=== PATIENT | male | born 1985 | race Hispanic/Latino ===

== ENCOUNTER 2017-11-18 13:53 | Emergency (ER) | payer OTHER ==
[2017-11-18] MEDS ORDERED: METOCLOPRAMIDE 10 MG/2 ML VIAL ONE (14:13)
[2017-11-18] MEDS ORDERED: DiphenhydrAMINE HCL 50 MG/ML VIAL ONE (14:14)
[2017-11-18] MEDS ORDERED: KETOROLAC TROMETHAMINE 15MG/ML ONE (14:14)
[2017-11-18 14:30] LABS: BASOPHILS % (AUTO) 0.6 % (0.0-5.0); HEMATOCRIT 43.3 % (42-54); LYMPHOCYTES % (AUTO) 23.5 % (21.0-51.0); MEAN CORPUSCULAR HEMOGLOBIN 29.3 pg (27.0-33.0); MEAN CORPUSCULAR HGB CONC 34.7 g/dL (32.0-36.0); MEAN CORPUSCULAR VOLUME 84.5 fL (79-99); MONOCYTES % (AUTO) 6.5 % (3.0-13.0); NEUTROPHILS % (AUTO) 67.4 % (40.0-77.0); PLATELET COUNT (AUTO) 343 K/uL (130-400); RED BLOOD CELL COUNT(AUTO) 5.12 MIL/uL (4.50-6.20); RED CELL DISTRIBUTION WIDTH 12.8 % (11.0-15.5); WHITE BLOOD COUNT (AUTO) 8.5 K/uL (4.8-10.8)
[2017-11-18 14:40] LABS: POTASSIUM 3.7 mmol/L (3.5-5.1)
[2017-11-18 14:46] LABS: ALBUMIN 3.7 g/dL (3.5-5.0); BILIRUBIN,TOTAL 0.1 mg/dL (0.2-1.0); TOTAL PROTEIN, SERUM 7.3 g/dL (6.0-8.3)
[2017-11-18] MEDS ORDERED: SODIUM CHLORIDE 0.9% 1000ML 1,000 ML IV ONE (15:09)
== END 2017-11-18 15:53 | disposition home or self-care (01) ==
LOC: EDH 13:53
DX: G43.909 Migraine, unspecified, not intractable, without status migrainosus (principal); Z72.0 Tobacco use; Z79.899 Other long term (current) drug therapy
CPT/HCPCS: 36415; 80053; 85025; 96374; 96375; 99284; J1200; J1885; J2765; J7030

== ENCOUNTER 2019-07-11 10:44 | Observation (INO) | payer OTHER ==
[~2019-07-11] VITALS: Ht 180.3 cm; Wt 83.9 kg
[2019-07-11 11:38] LABS: BASOPHILS % (AUTO) 0.8 % (0.0-5.0); EOSINOPHILS % (AUTO) 2.1 % (0.0-8.0); HEMATOCRIT 44.5 % (42-54); MEAN CORPUSCULAR HGB CONC 33.5 g/dL (32.0-36.0); MEAN CORPUSCULAR VOLUME 86.6 fL (79-99); MONOCYTES % (AUTO) 5.8 % (3.0-13.0); PLATELET COUNT (AUTO) 310 K/uL (130-400); RED BLOOD CELL COUNT(AUTO) 5.14 MIL/uL (4.50-6.20); WHITE BLOOD COUNT (AUTO) 6.6 K/uL (4.8-10.8)
[2019-07-11] MEDS ORDERED: KETOROLAC TROMETHAMINE 30MG/ML ONE (12:32)
[2019-07-11] MEDS ORDERED: LORAZEPAM 2 MG/ML 1 ML VIAL ONE (12:35)
[2019-07-11] MEDS ORDERED: CEFAZOLIN SODIUM 1 GM VIAL ONE (12:44)
[2019-07-11] MEDS ORDERED: SODIUM CHLORIDE 0.9% 100 ML IV ONE (12:44)
[2019-07-11] MEDS ORDERED: ACETAMINOPHEN 325 MG TAB PO PRN ×2 (14:45)
[2019-07-11] MEDS ORDERED: HYDRALAZINE HCL 20 MG/ML VIAL IV PRN (14:45)
[2019-07-11] MEDS: ZOSYN 3.375GM+NS 50ML 50 ML IV SCH ×2 (14:45→22:07)
[2019-07-11] MEDS ORDERED: ZOSYN 3.375GM+NS 50ML 50 ML IV ONE (16:27)
[2019-07-11] MEDS ORDERED: ACETAMINOPHEN 325 MG TAB ONE (17:31)
[2019-07-11 18:10] VITALS: BP 117/64
[2019-07-11] MEDS ORDERED: GABA-529 PO (18:46)
[2019-07-11] MEDS ORDERED: SERT100T PO (18:46)
[2019-07-11] MEDS ORDERED: OMEP40CA13 PO (18:46)
[2019-07-11 20:08] VITALS: BP 114/67
[2019-07-11] MEDS: FAMOTIDINE 20MG TAB 20 MG TAB PO SCH (20:22)
[2019-07-11] MEDS: KETOROLAC TROMETHAMINE 15MG/ML IV PRN (20:23)
[2019-07-11] MEDS: LORAZEPAM 2 MG/ML 1 ML VIAL IVP PRN (22:07)
[2019-07-12 00:12] VITALS: BP 106/57
[2019-07-12 04:12] VITALS: BP 96/56
[2019-07-12] MEDS: ZOSYN 3.375GM+NS 50ML 50 ML IV SCH ×3 (05:29→22:22)
[2019-07-12 07:51] VITALS: BP 107/63
[2019-07-12] MEDS: FAMOTIDINE 20MG TAB 20 MG TAB PO SCH ×2 (08:06→19:42)
[2019-07-12] MEDS: GABAPENTIN 100 MG CAPSULE PO SCH (08:06)
[2019-07-12] MEDS: KETOROLAC TROMETHAMINE 15MG/ML IV PRN ×3 (08:07→19:42)
[2019-07-12] MEDS: SERTRALINE HCL 50 MG TABLET PO SCH (08:07)
[2019-07-12] MEDS: LORAZEPAM 2 MG/ML 1 ML VIAL IVP PRN ×2 (08:47→17:08)
--- NOTE | 2019-07-12 08:49 | NUR ---
PT REQUESTING ATIVAN FOR HIT PTSD ANXIETY, ATIVAN 1MG IV GIVEN
--- NOTE | 2019-07-12 09:30 | NUR ---
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
[2019-07-12 11:21] VITALS: BP 93/56
--- NOTE | 2019-07-12 14:00 | NUR ---
PT ASKING WHEN HE IS GOING TO GO TO SURGERY, I HAVE CALLED DOWN TO SURGERY AND SPOKE TO CAPRICE AND SHE SAID THEY ARE WAITING FOR DR JONES TO CALL THEM AND SAY HE'S ON HIS WAY FROM [place]. I UPDATED PT ON THIS AND HE STATED UNDERSTANDING.
--- NOTE | 2019-07-12 14:53 | NUR ---
INITIAL Patient lives with spouse, Shasta Kathleen, [phone]. No home services. DME: CPAP. Patient states he is able to complete ADL's and drives. PCP is Dr. Ximena Lynn at [place]. Pharmacy is [place] [facility]. DCP is home. Addendum: 07/12/19 at 1455 by RACHELLE ONTIVEROS SS Amended: Links added.
[2019-07-12 16:05] VITALS: BP 112/70
--- NOTE | 2019-07-12 17:08 | NUR ---
I HAVE INFORMED PT THAT DR JONES CALLED AND IS NOT GOING TO BE ABLE TO DO HIS SURGERY TILL TOMORROW AT [place] AND THAT HE CAN EAT NOW AND THEN NPO AT [place]; HE ASKED FOR ATIVAN ANXIETY MEDICATION AND IT WAS GIVEN; HE ALSO ASKED IF HE COULD GO DOWNSTAIRS AND SMOKE AND I TOLD HIM IT WAS RECOMENDED HE DOESNT DUE TO FACT IT HINDERS HEALING AFTER SURGERY; HE STATED UNDERSTANDING. DIET ORDER ENTERED AND KITCHEN CALLED.
[2019-07-12 20:16] VITALS: BP 112/59
[2019-07-13] VITALS (16 sets, daily range): BP systolic 106–122; BP diastolic 58–82
[2019-07-13 04:42] LABS: BASOPHILS % (AUTO) 0.4 % (0.0-5.0); EOSINOPHILS % (AUTO) 3.3 % (0.0-8.0); HEMATOCRIT 40.9 % (42-54); LYMPHOCYTES % (AUTO) 30.3 % (21.0-51.0); MEAN CORPUSCULAR HEMOGLOBIN 29.1 pg (27.0-33.0); MEAN CORPUSCULAR HGB CONC 33.3 g/dL (32.0-36.0); MEAN CORPUSCULAR VOLUME 87.6 fL (79-99); MONOCYTES % (AUTO) 8.2 % (3.0-13.0); NEUTROPHILS % (AUTO) 57.5 % (40.0-77.0); PLATELET COUNT (AUTO) 288 K/uL (130-400); RED BLOOD CELL COUNT(AUTO) 4.67 MIL/uL (4.50-6.20); RED CELL DISTRIBUTION WIDTH 12.3 % (11.0-15.5); WHITE BLOOD COUNT (AUTO) 6.9 K/uL (4.8-10.8)
[2019-07-13 04:51] LABS: POTASSIUM 3.9 mmol/L (3.5-5.1)
[2019-07-13] MEDS: ZOSYN 3.375GM+NS 50ML 50 ML IV SCH ×2 (05:56→14:31)
[2019-07-13] MEDS: KETOROLAC TROMETHAMINE 15MG/ML IV PRN ×2 (08:14→14:26)
[2019-07-13] MEDS: LORAZEPAM 2 MG/ML 1 ML VIAL IVP PRN (08:14)
[2019-07-13] MEDS: GABAPENTIN 100 MG CAPSULE PO SCH ×2 (08:37→14:49)
[2019-07-13] MEDS: SERTRALINE HCL 50 MG TABLET PO SCH ×2 (08:37→14:49)
[2019-07-13] MEDS: FAMOTIDINE 20MG TAB 20 MG TAB PO SCH (08:37)
[2019-07-13] MEDS ORDERED: SERTRALINE HCL 200 MG PO SCH (09:00)
[2019-07-13] MEDS ORDERED: GABAPENTIN 100 MG CAPSULE PO SCH (09:00)
--- NOTE | 2019-07-13 10:35 | NUR ---
TO OR PATIENT HAS BEEN TRANSFERRED TO OR HOLDING AREA VIA HOSPITAL BED IN STABLE CONDITION ACCOMPANIED BY SPOUSE.
[2019-07-13] MEDS ORDERED: CEFAZOLIN SODIUM 1 GM VIAL ONE (11:29)
[2019-07-13] MEDS ORDERED: PROPOFOL 10 MG/ML 20ML VIAL IV ONE ×2 (11:58→12:19)
[2019-07-13] MEDS ORDERED: MIDAZOLAM HCL 1 MG/ML 2ML VIAL ONE (11:58)
[2019-07-13] MEDS ORDERED: GLYCOPYRROLATE 1 MG/5 ML SYRINGE ONE (11:58)
[2019-07-13] MEDS ORDERED: SUCCINYLCHOLINE 200MG/10ML SYR ONE (11:58)
[2019-07-13] MEDS ORDERED: LIDOCAINE PF 2% 5ML ABBOJECT ONE (11:58)
[2019-07-13] MEDS ORDERED: DEXAMETHASONE SOD PHOSPHATE 10MG/ML 1ML VIAL ONE (11:58)
[2019-07-13] MEDS ORDERED: ROCURONIUM 10MG/1ML SYR 10 MG/ML ML ONE (11:59)
[2019-07-13] MEDS ORDERED: FENTANYL CITRATE PF 50 MCG/1 ML 2ML VIAL ONE (11:59)
[2019-07-13] MEDS ORDERED: NEOSTIGMINE 5MG/5ML SYR IV ONE (11:59)
[2019-07-13] MEDS ORDERED: MEPERIDINE-PF 25 MG/ML SYG ONE (13:33)
--- NOTE | 2019-07-13 14:05 | NUR ---
POST SURGERY PATIENT RETURNED FROM PACU IN STABLE CONDITION. IS AT BEDSIDE. HE HAS BEEN REORIENTED TO ROOM AND USE OF CALL LIGHT. BED IS IN LOWEST POSITION AND LOCKED. C/O PAIN TO LEFT RING FINGER. DRESSING TO LEFT HAND IS DRY AND INTACT WITH ARM SLING IN PLACE.
--- NOTE | 2019-07-13 16:30 | NUR ---
INSTRUCTIONS DISCHARGE INSTRUCTIONS GIVEN TO PATIENT AND SPOUSE USING TEACH BACK. IV REMOVED WITH TIP INTACT. DIRECT PRESSURE APPLIED UNTIL BLEEDING CONTROLLED THEN SITE COVERED WITH GAUZE AND SECURED WITH A BAND-AID. NEW PRESCRIPTIONS PLACED IN PACKET ALONG WITH ALL PRINTED INFORMATION AND MD INSTRUCTIONS. PATIENT WILL BE LEAVING WITH ARM SLING. NO QUESTIONS OR CONCERNS VOICED.
== END 2019-07-13 17:27 | disposition home or self-care (01) ==
LOC: EDH 10:44 → EDHIP 10:45 → 4BH 18:11
PROVIDERS: ADMIT Internal Medicine; ATTEND Internal Medicine
DX: T75.4XXA Electrocution, initial encounter (principal); T23.222A Burn of second degree of single left finger (nail) except thumb, initial encounter; S61.215A Laceration without foreign body of left ring finger without damage to nail, initial encounter; T31.0 Burns involving less than 10% of body surface; F41.9 Anxiety disorder, unspecified; F32.9 Major depressive disorder, single episode, unspecified; R53.82 Chronic fatigue, unspecified; K21.9 Gastro-esophageal reflux disease without esophagitis; F43.10 Post-traumatic stress disorder, unspecified; W86.8XXA Exposure to other electric current, initial encounter; Y93.89 Activity, other specified; Y92.69 Other specified industrial and construction area as the place of occurrence of the external cause; Y99.0 Civilian activity done for income or pay
CPT/HCPCS: 16020; 36415 ×2; 73140; 80048 ×2; 84145; 85025 ×2; 96365; 96366 ×5; 96375 ×2; 96376 ×4; 99284; A4222; A4223; A4930; C1762; G0168; G0378 ×15; J0330; J0690 ×2; J1100; J1885 ×7; J2001; J2060 ×5; J2175; J2250; J2543 ×9; J2704 ×2; J2710; J3010; J3490; J7030; 28515

== ENCOUNTER 2020-09-18 18:03 | Emergency (ER) | payer OTHER ==
[~2020-09-18 18:03] MED LIST: GABA-529 PO; OMEP40CA13 PO; SERT100T PO
== END 2020-09-18 19:31 | disposition left against medical advice (07) ==
LOC: EDH 18:03
DX: R05 Cough (principal); J02.9 Acute pharyngitis, unspecified; F41.9 Anxiety disorder, unspecified; F32.9 Major depressive disorder, single episode, unspecified; Z72.0 Tobacco use; Z53.21 Procedure and treatment not carried out due to patient leaving prior to being seen by health care provider